=== PATIENT | male | born 1990 | race Caucasian/White ===

== ENCOUNTER 2016-11-14 00:34 | Emergency (ER) | payer OTHER ==
[~2016-11-14] VITALS: Ht 167.6 cm; Wt 57.4 kg
[~2016-11-14 00:34] MED LIST: CLIN1CAP5 PO; LANTUSP SQ; MUPI2%T TOP; SULF-154 PO; ULTR50TA PO; [UNRECOGNIZED DRUG - OTHER] SQ
[2016-11-14 00:48] VITALS: BP 106/73; PULSE 75; RESP 14; TEMP 98.6; O2SAT 100
--- NOTE | 2016-11-14 01:35 | PD ---
HPI Chief Complaint: Skin Problem Time Seen by Provider: 01:31 Travel History International Travel<30 days: No Contact w/Intl Traveler<30days: No Traveled to known affect area: No History of Present Illness HPI 26-year-old male presents to the emergency department for complaint of 3 days of right axillary pain and swelling with focal area of redness and tenderness. Patient is type I diabetic and states blood sugars have been up and down. Patient denies fever or chills. Patient denies any generalized weakness. Patient reports due to increasing size of area of soft tissue swelling with redness and tenderness as well as being diabetic decided to come to the emergency room for evaluation. Patient denies other injury or complaint. Patient rates his pain 8/10 in intensity. PFSH Past Medical History Narrative Medical Diabetes pump; tobacco use alcohol use substance use; nursing notes reviewed Autoimmune Disease: No Blood Disorders: No Anxiety: No Depression: No Cancer: No Cardiovascular Problems: No Diabetes: Yes (SINCE 8YO) Patient Takes Glucophage: No Diminished Hearing: No Endocrine: Yes Genitourinary: No Headaches: No Immune Disorder: No Implanted Vascular Access Dvce: Yes Musculoskeletal: No Neurologic: No Psychiatric: Yes Reproductive: No Respiratory: No Seizures: No Sickle Cell Disease: No PNEUMOCCOCAL Vaccine (Year): 2 ?: Not Past Surgical History Insulin Pump: Yes (SINCE 14YO) Other Surgery: Yes (COLONOSCOPY) Social History Alcohol Use: Yes Tobacco Use: Yes (1 PACK A DAY) Substance Use: Yes (CANNABIS SOMETIMES) Allergies-Medications (Allergen,Severity, Reaction): Coded Allergies: Gluten (Verified Allergy, Severe, 09/13/13) Reported Meds & Prescriptions Reported Meds & Active Scripts Active Lortab (Hydrocodone-Acetaminophen) 5-325 Mg Tab 1 Tab PO Q6H PRN Clindamycin (Clindamycin HCl) 150 Mg Cap 300 Mg PO Q6H 5 Days Bactrim DS (Sulfamethoxazole-Trimethoprim) 800-160 Mg Tab 1 Tab PO BID Reported [apiedra] 1.5 Unit SQ Q1 INSULIN PUMP Review of Systems Except as stated in HPI: all other systems reviewed are Neg Physical Exam Narrative GENERAL: Well-developed well-nourished pleasant male in no acute distress no respiratory distress SKIN: Warm and dry. HEAD: Normocephalic. EYES: No scleral icterus. No injection or drainage. NECK: Supple, trachea midline. No JVD or lymphadenopathy. CARDIOVASCULAR: Regular rate and rhythm without murmurs, gallops, or rubs. RESPIRATORY: Breath sounds equal bilaterally. No accessory muscle use. GASTROINTESTINAL: Abdomen soft, non-tender, nondistended. MUSCULOSKELETAL: No cyanosis, or edema. Attention right axilla 1.5 cm x 1.5 cm area of erythema induration fluctuance and tenderness to palpation without surrounding edema erythema or induration and no streaking. Patient was secondary subcentimeter area of erythema and induration nonfluctuant. BACK: Nontender without obvious deformity. No CVA tenderness. Data Data Last Documented VS Vital Signs Date Time Temp Pulse Resp B/P Pulse Ox O2 Delivery O2 Flow Rate FiO2 11/14/16 02:39 78 16 152/77 99 11/14/16 00:48 98.6 Orders Lidocaine Pf 1% Inj (Xylocaine-Mpf 1% In (11/14/16 01:45) Blood Glucose (11/14/16 01:32) Sulfamet-Trimeth Ds 800-160 Mg (Bactrim (11/14/16 01:45) Clindamycin (Cleocin) (11/14/16 02:15) Abscess Culture And Gram Stain (11/14/16 03:01) MDM Medical Decision Making Medical Screen Exam Complete: Yes Emergency Medical Condition: Yes Medical Record Reviewed: Yes Differential Diagnosis Abscess, cellulitis, furuncle, carbuncle, lymphadenopathy, uncontrolled diabetes Narrative Course b Patient underwent elective incision and drainage of the right axilla abscess Procedures Procedure Narrative After the risks and benefits were discussed the following procedure was performed: INCISION AND DRAINAGE OF ABSCESS: The area was prepped and was sterilely draped. A subcutaneous wheal of 1 % Xylocaine with a total number 2 mL was used to anesthetize the area. The area was properly anesthetized. A number 11 scalpel was used to make a 1 -cm incision across the area of the abscess. Cultures were obtained. The abscess was drained an irrigated with normal saline. Quarter inch iodoform packing was placed in the wound. Sterile dressing applied. Patient advised to have packing removed in two days. Diagnosis Primary Impression: Cutaneous abscess of right axilla Referrals: Primary Care Physician 2 days Patient Instructions: General Instructions Additional Instructions: Packing removal in 2 days either through the emergency department or your primary care office Keep site clean and dry change dressing daily Complete course of antibiotic as prescribed Take pain medication as prescribed as needed May use ibuprofen/Advil/Motrin 600 mg as often as every 6-8 hours for pain associated with inflammation or for fever 100.4F or greater May use acetaminophen/Tylenol every 4-6 hours as needed for fever 100.4F or greater Return to the emergency department for any concerns or change in condition Med/Other Pt SpecificInfo: Prescription(s) given Scripts Hydrocodone-Acetaminophen (Lortab)5-325 Mg Tab1 Tab PO Q6H PRN (PAIN) #7 TAB Ref 0 Prov:Audra Dee MD 11/14/16 Clindamycin 150 Mg [id number] Mg PO Q6H 5 Days Ref 0 Prov:Audra Dee MD 11/14/16 Sulfamethoxazole-Trimethoprim (Bactrim DS)800-160 Mg Tab1 Tab PO BID #14 TAB Ref 0 Prov:Audra Dee MD 11/14/16 Disposition: 01 DISCHARGE HOME Condition: Stable Audra Dee MD Nov 14, 2016 01:35
[2016-11-14] MEDS ORDERED: LIDOCAINE HCL 1% PF 30 ML VIAL INFIL ONE (01:45)
[2016-11-14] MEDS ORDERED: SULFAMETHOXAZOLE-TRIMETHOPRIM DS 800-160 MG TAB PO ONE (01:45)
[2016-11-14] MEDS ORDERED: HYDR-3533 PO (02:09)
[2016-11-14] MEDS ORDERED: CLIN1CAP5 PO (02:09)
[2016-11-14] MEDS ORDERED: BACT800T5 PO (02:09)
[2016-11-14] MEDS ORDERED: CLINDAMYCIN 150 MG CAP PO ONE (02:15)
[2016-11-14 02:39] VITALS: BP 152/77
== END 2016-11-14 02:43 | disposition home or self-care (01) ==
LOC: PHEFT 00:34
DX: L02.411 Cutaneous abscess of right axilla (principal); F17.210 Nicotine dependence, cigarettes, uncomplicated; E11.9 Type 2 diabetes mellitus without complications; Z79.4 Long term (current) use of insulin; Z96.41 Presence of insulin pump (external) (internal)
CPT/HCPCS: 10061; 86403; 87070; 87186

== ENCOUNTER 2016-11-16 05:55 | Emergency (ER) | payer OTHER ==
[~2016-11-16] VITALS: Ht 167.6 cm; Wt 59.7 kg
[~2016-11-16 05:55] MED LIST changes: +BACT800T5 PO; +HYDR-3533 PO; -LANTUSP SQ; -MUPI2%T TOP; -SULF-154 PO; -ULTR50TA PO
[2016-11-16 06:02] VITALS: BP 103/65; PULSE 80; RESP 12; TEMP 98.4; O2SAT 100
[2016-11-16 06:24] VITALS: BP 103/65; PULSE 80; RESP 18; TEMP 98.4; O2SAT 100
--- NOTE | 2016-11-16 07:01 | PD ---
HPI Chief Complaint: Skin Problem Time Seen by Provider: 07:00 Travel History International Travel<30 days: No Contact w/Intl Traveler<30days: No Traveled to known affect area: No History of Present Illness HPI 26-year-old male came to the emergency room with history of noticing a painful bump on his right axilla. Patient says he was here 2-3 days ago for another similar bump in the same axilla that was incised and packed. He was discharged home with the packing and a prescription for antibiotic. So far he has taken 6 doses of the antibiotic which is clindamycin. There was a small bump next to the one that was incised and today he noticed that it has gotten bigger in size. Also he noticed that the packing from the other one came out. Vital signs are stable. PFSH Past Medical History Narrative Medical List of his past medical, surgical, social and family history as reviewed from the nursing note. Autoimmune Disease: No Blood Disorders: No Anxiety: No Depression: No Cancer: No Cardiovascular Problems: No Diabetes: Yes (SINCE 8YO) Patient Takes Glucophage: No Diminished Hearing: No Endocrine: Yes Genitourinary: No Headaches: No Immune Disorder: No Implanted Vascular Access Dvce: Yes Musculoskeletal: No Neurologic: No Psychiatric: Yes Reproductive: No Respiratory: No Seizures: No Sickle Cell Disease: No PNEUMOCCOCAL Vaccine (Year): 2 Past Surgical History Insulin Pump: Yes (SINCE 14YO) Other Surgery: Yes (COLONOSCOPY) Social History Alcohol Use: Yes Tobacco Use: Yes (1 PACK A DAY) Substance Use: Yes (CANNABIS SOMETIMES) Allergies-Medications (Allergen,Severity, Reaction): Coded Allergies: Gluten (Verified Allergy, Severe, 11/16/16) Comments List of his allergies reviewed from the nursing note. Reported Meds & Prescriptions Reported Meds & Active Scripts Active Lortab (Hydrocodone-Acetaminophen) 5-325 Mg Tab 1 Tab PO Q6H PRN Clindamycin (Clindamycin HCl) 150 Mg Cap 300 Mg PO Q6H 5 Days Bactrim DS (Sulfamethoxazole-Trimethoprim) 800-160 Mg Tab 1 Tab PO BID Reported [apiedra] 1.5 Unit SQ Q1 INSULIN PUMP Narrative Medication List of his home medications reviewed from the nursing note. Review of Systems Except as stated in HPI: all other systems reviewed are Neg Physical Exam Narrative GENERAL: Awake, alert, no obvious distress SKIN: Focused skin assessment warm/dry. Right axilla small papular lesion with an incision on top which is dried with no discharge. There is another raised 0.5 cm tender papular, nonfluctuant lesion which appears to be another folliculitis. HEAD: Atraumatic. Normocephalic. EYES: Pupils equal and round. No scleral icterus. No injection or drainage. ENT: No nasal bleeding or discharge. Mucous membranes pink and moist. NECK: Trachea midline. No JVD. CARDIOVASCULAR: Regular rate and rhythm. No murmur appreciated. RESPIRATORY: No accessory muscle use. Clear to auscultation. Breath sounds equal bilaterally. GASTROINTESTINAL: Abdomen soft, non-tender, nondistended. Hepatic and splenic margins not palpable. MUSCULOSKELETAL: No obvious deformities. No clubbing. No cyanosis. No edema. NEUROLOGICAL: Awake and alert. No obvious cranial nerve deficits. Motor grossly within normal limits. Normal speech. PSYCHIATRIC: Appropriate mood and affect; insight and judgment normal. Data Data Last Documented VS Vital Signs Date Time Temp Pulse Resp B/P Pulse Ox O2 Delivery O2 Flow Rate FiO2 11/16/16 06:55 16 11/16/16 06:24 98.4 80 103/65 100 MDM Medical Decision Making Medical Screen Exam Complete: Yes Emergency Medical Condition: Yes Medical Record Reviewed: Yes Differential Diagnosis Folliculitis, abscess Narrative Course 7:09 AM I did not feel much fluctuations. Patient is already on antibiotic. He has only taken 6 doses of the clindamycin. I've asked him to continue the warm compresses and continue taking the antibiotic. He will be discharged home. Procedures EKG Prior to Arrival: No Diagnosis Primary Impression: Folliculitis Referrals: Primary Care Physician Additional Instructions: Continue taking your antibiotics like is supposed to. Apply warm moist compress on the area 10 minutes each time as frequently as possible while taking the antibiotic. Return to the ER if the infection gets worse. Otherwise complete the antibiotic course. Med/Other Pt SpecificInfo: No Change to Meds Disposition: 01 DISCHARGE HOME Condition: Stable Shanda Santiago MD Nov 16, 2016 07:01
== END 2016-11-16 07:23 | disposition home or self-care (01) ==
LOC: PHED 05:55
DX: L73.9 Follicular disorder, unspecified (principal); E11.9 Type 2 diabetes mellitus without complications
CPT/HCPCS: 99282